=== PATIENT | female | born 1945 | race Caucasian/White ===

== ENCOUNTER 2023-05-29 22:16 | Inpatient (IN) | payer OTHER, SELFPAY ==
[2023-05-29] VITALS (10 sets, daily range): BP systolic 143–166; BP diastolic 76–97; BMI 21.5
[2023-05-29 17:30] LABS: % Basophils 0.2 % (0-2); % Eosinophils 0.1 % (0-6); % Immature Granulocytes 0.7 % (0-0.5); % Lymphocytes 5.5 % (20.5-51.1); % Monocytes 8.3 % (1.7-9.3); % Neutrophils 85.2 % (42.2-75.2); Absolute Immature Granulocytes 0.1 10^3/uL (0-0.05); Absolute Lymphocytes 0.9 10^3/uL (1.2-3.4); Absolute Monocytes 1.4 10^3/uL (0.1-0.6); Absolute Neutrophils 14.2 10^3/uL (1.4-6.5); Mean Corp Hgb Conc. 34.8 g/dL (33.0-37.0); Mean Corpuscular Hgb 30.1 pg (27.0-31.0); Mean Corpuscular Volume 86.6 fL (81.0-99.0); Mean Platelet Volume 9.5 fL (7.4-10.4); Nucleated Red Blood Cells % 0 %; Platelet Count 234 10^3/uL (130-400); Red Blood Cell Count 5.31 10^6/uL (4.20-5.40); Red Cell Dist. Width 13.5 % (11.5-14.5); White Blood Cell Count 16.7 10^3/uL (4.8-10.8)
[2023-05-29 17:42] LABS: Lactic Acid 1.6 mmol/L (0.7-2.0)
--- NOTE | 2023-05-29 18:03 | ED.GENMED ---
History of Present Illness
General
Chief Complaint: Fall
Source: patient
Exam Limitations: none
Time Seen by Provider: 05/29/23 17:57
Travel History
Have you had any contact with someone who has COVID-19?: No
Do you have any symptoms of coronavirus? Fever > 100 degrees, chills, cough, shortness of breath, sore throat, loss of taste or smell, muscle aches, or headache?: No
History of Present Illness
History of Present Illness:
See MDM
Past History
Past History
ED Past Medical History: None
ED Past Surgical History: None
Social History
Tobacco: Non-smoker
Alcohol: None
Phy Exam
Physical Exam
Physical Exam:
See MDM
Course
Orders/Labs/Results
Orders:
Orders
05/29/23 17:19
EKG [Electrocardiogram (*1)] Urgent
Reason for Study: Tachycardia
05/29/23 17:20
EKG- Treatment ONCE
Straight cath- Treatment ONCE
05/29/23 17:24
Complete Blood Count/With Diff Urgent
Lactic Acid Q4H
Comment: ON ICE, CANCEL 2ND ORDER IF FIRST LACTIC ACID LEVEL <2
Urinalysis Reflex To Culture Urgent
Date Specimen was Collected: 05/29/23
Time Specimen was Collected: 17:21
Urine Microscopic Reflex Cult Urgent
Urine Culture Urgent
HERNAN Source: U
Specimen Description:
Date Specimen was Collected: 05/29/23
Time Specimen was Collected: 17:21
05/29/23 18:00
0.9% Sodium Chloride 1000 ml [Nss] 1,000 ml IV BOLUS
05/29/23 18:01
CT Head W/o Iv Contrast Urgent
Comment:
Reason For Exam: fall, posterior head injury
04/13/24 18:02
Bilat Hips, 2 View W/AP Pelvis [CR Hips REESE w/wo Pel 2 Vw] Urgent
Comment:
Reason For Exam: bilateral hip pain
Include a pelvis x-ray?: Yes
05/29/23 18:04
Add On- LAB Urgent
Tests Added?: CRP
05/29/23 18:44
C-Reactive Protein Urgent
Comment: ADDON
05/29/23 20:11
Comprehensive Metabolic Panel Urgent
Creatine Phosphokinase Urgent
Comment: ADD ON
05/29/23 20:53
Add On- LAB Urgent
Tests Added?: CPK
05/29/23 20:54
CefTRIAXone [Rocephin] 1,000 mg IV NOW STA
05/29/23 21:30
Lactic Acid Q4H
Comment: ON ICE, CANCEL 2ND ORDER IF FIRST LACTIC ACID LEVEL <2
Abnormal Lab Results
05/29/23 05/29/23 05/29/23
17:24 18:44 20:11
WBC 16.7 H 10^3/uL
(4.8-10.8)
Abs Immat Gran (auto) 0.1 H 10^3/uL
(0-0.05)
Absolute Neuts (auto) 14.2 H 10^3/uL
(1.4-6.5)
Absolute Lymphs (auto) 0.9 L 10^3/uL
(1.2-3.4)
Absolute Monos (auto) 1.4 H 10^3/uL
(0.1-0.6)
Immature Gran % 0.7 H %
(0-0.5)
Neutrophils % 85.2 H %
(42.2-75.2)
Lymphocytes % 5.5 L %
(20.5-51.1)
Sodium 146 H mmol/L
(135-145)
Chloride 116 H mmol/L
(98-107)
BUN 43 H mg/dl
(7-17)
Creatinine 0.5 L mg/dL
(0.6-1.0)
Glucose 122 H mg/dl
(70-99)
AST 156 H U/L
(14-36)
ALT 126 H U/L
(0-35)
C-Reactive Protein 79.20 H mg/L
(0.0-10.00)
Albumin 3.4 L g/dl
(3.5-5.0)
Urine Ketones 3+ A
(Negative)
Ur Occult Blood Reflex 4+ A
(Negative)
Urine Nitrite (Reflex) Positive A
(Negative)
Leukocyte Esterase Rfl 2+ A
(Negative)
Urine WBC (Reflex) >100 A /HPF
(0-5)
Urine Bacteria (Reflex) Many A
(Negative)
Urine Albumin (Reflex) 2+ A
(Neg - Trace)
05/29/23 17:24
05/29/23 20:11
Vital Signs
Initial and Last Documented VS:
Initial Vital Signs
Temp Pulse Resp BP Pulse Ox
98.0 F 113 20 149/97 96
05/29/23 16:54 05/29/23 16:54 05/29/23 16:54 05/29/23 16:54 05/29/23 16:54
Last Documented Vital Signs
Temp Pulse Resp BP Pulse Ox
98.0 F 113 20 149/97 96
05/29/23 16:54 05/29/23 16:54 05/29/23 16:54 05/29/23 16:54 05/29/23 16:54
MDM/Problems Addressed
Differential Diagnosis Includes:
HPI and MDM Narrative:
78-year-old female presenting for evaluation of weakness. Patient states she had a fall and then she sat in a chair. Patient was unable to get out of the chair for 4 days. Friend called for a well visit and she was found covered in urine. On
arrival, patient is extremely dehydrated. She has bruising to her left hip and states she hit the back of her head. Patient has skin breakdown in her buttock, like from sitting in urine
Patient started IV fluids. Given the fall and head injury, will obtain CT head. Given the left hip bruising, will obtain hip x-ray. Will ultimately admit
Physical exam
General: Weak and frail
HEENT: protecting airway. Extremely dry mucous membranes
Neck: Nontender, supple
CV: No evidence of cyanosis. Tachycardic
Resp: No accessory muscle use
Abd: Non-distended
Extremities: Bruising to left hip
Neuro: alert
Psych: Normal affect
Skin: Skin breakdown to buttocks
Problems Addressed including Acute and Chronic Conditions affecting care:
1. Dehydration
Acuity: acute
Prognosis: unstable
Details: Patient requiring IV fluid
2. Hip pain
Acuity: acute
Prognosis: stable
Details: Will obtain x-ray to rule out fracture
Updates
CT head and hip x-rays negative. Blood work consistent with dehydration. Urine consistent with UTI. Will start Rocephin and continue IV fluids and admit
Differential Diagnosis (but not limited to): Dehydration, hip fracture, UTI
Testing considered: Chest x-ray but lungs
Drug therapy (if applicable): OTC meds, please see d/c instruction regarding Rx drugs
Amount and/or Complexity of Data Reviewed
Clinical info obtained from: Patient
External data reviewed: N/A
Labs I independently reviewed (but not limited to): Sodium 146
Radiology: The CT scan was personally and independently reviewed. In addition, official CT report reviewed.
X-ray independently reviewed: No hip fracture
Pulse Ox: not hypoxic
EKG independently reviewed: N/A
Alarm Signal Operator: N/A
Critical Care: N/A
Risk of Complication:
Social Determinants of health: Good social support
Discussed with other providers: Hospitalist
Escalation of Care includes Admit/Obs: Given her dehydration and generalized weakness in addition to UTI, will admit.
Occasional wrong word or 'sound a like' substitutions may have occurred due to the inherent limitations of voice recognition software. Read the chart carefully and recognize, using context, where substitutions have occurred.
*Critical Care Note
Total Time (30-74mins, 75-104mins- exclusive of procedures): Not Applicable
ED Attending Note
-
Portions of this chart may have been created with voice recognition software.� Occasional wrong word or��sound alike� substitutions may have occurred due to the inherent limitations of voice recognition software.
Discharge Plan
Departure
Patient Disposition: Admit
Date of Disposition: 05/29/23
Time of Disposition: 20:57
Admit to: Med/Surg
Presentation/result/management discussed w/ accepting MD/DO: Hospitalist
Discharge Problem:
Acute dehydration, Acute UTI, Contusion of hip
Referrals:
Sudha Huddleston MD [Family Provider] -
Interventions
Interventions:
*Risk Screen - Suicide Last Done: 05/29/23 16:54
*General Assessment Last Done: 05/29/23 16:54
*Neglect/Abuse Screening Last Done: 05/29/23 16:54
Discharge Date and Time
Print Language: MARTINIQUAIS
[2023-05-29] MEDS: NSS 1000 IV ×2 (18:45→23:54)
[2023-05-29 20:34] LABS: ALT (SGPT) 126 U/L (0-35); AST (SGOT) 156 U/L (14-36); Albumin 3.4 g/dl (3.5-5.0); Alkaline Phosphatase 116 U/L (38-126); Blood Urea Nitrogen 43 mg/dl (7-17); Calcium 9.3 mg/dl (8.4-10.2); Carbon Dioxide 25 mmol/L (22-30); Chloride 116 mmol/L (98-107); Estimated Creatinine Clearance 68 ml/min; Glucose 122 mg/dl (70-99); Potassium 3.5 mmol/L (3.5-5.1); Sodium 146 mmol/L (135-145); Total Bilirubin 0.7 mg/dl (0.2-1.3); Total Protein 6.3 g/dl (6.3-8.2); eGFR > 60.00
[2023-05-29 20:42] LABS: Urine Albumin 2+ (Neg - Trace); Urine Bilirubin Negative (Negative); Urine Character Very Cloudy (Clear); Urine Color Yellow; Urine Glucose Negative (Negative); Urine Ketone 3+ (Negative); Urine Leukocyte 2+ (Negative); Urine Nitrite Positive (Negative); Urine Occult Blood 4+ (Negative); Urine Specific Gravity 1.015 (<1.030); Urine Urobilinogen Negative (Neg - 1+)
[2023-05-29 20:48] LABS: Urine Squamous Cell 0-2 /LPF (Few)
[2023-05-29 20:49] LABS: Urine Bacteria Many (Negative); Urine White Cell >100 /HPF (0-5)
[2023-05-29] MEDS: ROCEPHIN 1000 MG IV (21:03)
[2023-05-29 21:38] LABS: Creatine Phosphokinase 2589 U/L (30-135)
--- NOTE | 2023-05-29 21:49 | HPS.HSE ---
Family Physician
-
Family Physician: Sudha Huddleston
Chief Complaint
-
Fall, weakness sitting in chair x 4 days
History of Present Illness
78-year-old female who reports she fell then sat in a chair for the last 4 days. She was found during a well visit covered in urine with bruising to the left hip. She reports when she fell she hit the back of her head. She has current skin
breakdown on her buttocks. Labs in ER show dehydration with rhabdomyolysis. Patient denies current headache, dizziness, blurred vision, sore throat, fever, chills, chest pain, palpitations, abdominal pain, nausea, vomiting, diarrhea. Patient
denies any past medical history past surgical history cataract extraction only
Medical History
Past Medical History
Past Medical History: Reports None
Past Surgical History: Reports Other (Cataract extraction bilaterally)
Social History
Tobacco: Non-smoker
Alcohol: None
Drug: None
Personal: Single
Living: Alone (Condo)
Employment: Retired
Family History
Family History: Other (Mother head and neck cancer, father alcohol abuse, brother of lung cancer)
Allergies / Home Medications
Allergies reflects when Allergies were last updated in [employer].
Home Medications with original date entered in [employer]
Allergy/Medication List:
Allergies
Allergy/AdvReac Type Severity Reaction Status Date / Time
No Known Allergies Allergy Verified 05/29/23 16:54
Home Medications
Calcium with Vitamin D 1 tab PO DAILY 05/29/23
M.V.I. Adult 1 tab PO DAILY 05/29/23
Review of Systems
-
History Source: Patient
A 12 point ROS was completed and negative except as noted: Yes
Constitutional: Reports Fatigue; Denies Fever
EENT: Reports Other (Dry oral mucosa); Denies Sore Throat
Respiratory: Denies Cough or Trouble Breathing
Cardiac: Denies Chest Pain, Diaphoresis, Palpitations or Syncope
Abdomen/GI: Denies Abdominal Pain, Nausea, Vomiting, Diarrhea, Constipated or Bloody Stools
: Reports Dysuria (With excoriation to groin) and Incontinence (Found sitting in urine x 4 days); Denies Flank Pain
Musculoskeletal: Reports Joint Pain (Left hip); Denies Joint Swelling or Edema
Skin: Reports Other (Excoriation to buttocks and vaginal area secondary to soaked urine); Denies Itching or Rash
Neurological: Denies Dizzy or Headache
Endocrine: Reports No Symptoms
Hematologic/Lymphatic: Reports No Symptoms
Psych: Reports Calm
Physical Exam
Vital Signs
Vital Signs
Temp Pulse Resp BP Pulse Ox
98.0 F 113 20 149/97 96
05/29/23 16:54 05/29/23 16:54 05/29/23 16:54 05/29/23 16:54 05/29/23 16:54
Physical Exam
General: Comfortable and Conversant; No Fever or Chills
HEENT: NormoCephalic, Anicteric, Atraumatic, PERRLA and Neck Nontender
Respiratory: Clear; No Wheezes, Rales or Rhonchi
Cardiac: S1/S2 and Regular Rhythm; No Murmur, Rub or Gallop
Breast: Deferred by me
GI: Soft, Non Tender, Non Distended and Normal Bowel Sounds
Rectal: Deferred by Provider
Genito-urinary: Deferred by me
Musculoskeletal: No Clubbing, No Cyanosis and No Edema
Skin: Warm, Dry and Rash (Excoriation to buttocks and vaginal area from lying in soaked urine x 4 days)
Neuro: AO x 3, No Motor Deficits, Nonfocal/grossly intact, Cranial Nerves Intact and No Sensory Deficits; No Slurred Speech, Facial Droop or Tremors
Psych: Calm
Laboratory Results
-
05/29/23 17:24
05/29/23 20:11
Laboratory Results
Lactic Acid Cancelled 05/29/23 21:30
Total Bilirubin 0.7 mg/dl (0.2-1.3) 05/29/23 20:11
AST 156 U/L (14-36) H 05/29/23 20:11
ALT 126 U/L (0-35) H 05/29/23 20:11
Alkaline Phosphatase 116 U/L (38-126) 05/29/23 20:11
Impression/Plan
-
Impression/plan
Admit to [facility]
#Acute UTI
WBC 16.7, pyuria
-Follow urine culture, blood cultures x 2
-IV Rocephin
#Acute rhabdomyolysis
Creatinine kinase 2589
NSS 1 L given in ER continue IV NSS, 100 cc/h
-Follow CPK
-PT/OT/case management eval patient lives alone in condo
#Acute transaminitis in setting of acute rhabdo
AST 156, ALT 126
- will follow CMP
#Acute hyponatremia�hypovolemic
NA 146, bun 43
IV NSS 100 cc an hour
#Excoriation buttocks 2/2 prolonged sitting with urine saturation
-Consult wound care
DVT prophylaxis
-subcu Lovenox
DNR per patient states her nephew Jason is her POA
--- NOTE | 2023-05-29 21:58 | W.PN.UPDATE ---
Addendum entered and electronically signed by Slikc Mcghee MD 05/29/23 22:06:
CORRECTION: DNR per advanced directives confirmed by patient
Original Note:
Update Note
Progress Note Update
This note serves as an addendum to the H&P by crucible furnace tender EUNICE Allyn VYAS on 05/29/23
HPI
78F Lives alone , no significant prior PMHX , not on any schedule Rx except vitamins seen at ER for evaluation of weakness and Fall 4 days ago
Fall & weakness:
Reports fall 4 day ago , denied prodromal symptoms before fall
Denied acute illness prior to above fall
Reports hi the back of the head : No LOC, denied N/V and THOMAS
Immediately able to get back on chair
Since than reports she is unable to gt out of chair and sit ther for last 4 days due to severe generalized weakness
Friend called for a well visit and she was found covered in urine s/s urinary incontinece and unable to go to [facility]
At ER:
Noted skin brake down in buttocks due to siting in pool of urine
Noted Lt hip bruising - NEG XR both hips and pelvis
FROM of bot hips - Non tender ROM
Reports hit head when fallbut NEG HCT
Abn UA suggestive of UTI
Clinically very dry
Tachycardic
Mildly hypertensive
PMHX : None
PSHX : None
SHx
Tobacco: Non-smoker
Alcohol: None
Reviewed VS: Afebrile tachycardic HR 113 BP 150/97 RR20 POx 96
PE
Gen: NAD, not toxic looking, calm
HEENT: very dry lips, OM
Neck: supple, no JVD
Lungs: symmetric AE
Cor: RRR S1 S2 no mumur
Abdomen: soft NT NG NRT
COLLAR TURNER: AAO3, NFND, KOSTAS
MS: no edema, Both hips - full ROM without tenderness , no gross defomitiy
Psych:
Data
WCC 16.7
Na 146
K 3.5
Cl 116
CO2 25
BUN 43
AST 156
ALT 126
CPKS 2589
Pending Covid
Abn UA: 2+ LE, WCC > 100 , many bacteria, POS Nitrites
B/L Hip with AP pelvis XR:
Mild degenerative changes of both hips without evidence for acute fracture or dislocation.
Mild degenerative changes of the pubis symphysis, bilateral sacroiliac joints and partially visualized lower lumbar spine.
Soft tissues are grossly unremarkable.
HCT: No acute intracranial abnormality noted
EKG:
SINUS TACHYCARDIA
OTHERWISE NORMAL ECG
NO PREVIOUS ECGS AVAILABLE
No prior hospitalist admission:
ASSESSMENT & PLAN
UTI
Significant pyuria and urine incontinence
Burning sensation around perivaginal are due to excoriation
Afebrile
- UCx reflex for UA
- agree with IV CFTX
- IVF NS
Mild Rhabdomyolysis due to prolonged sitting pressure on buttocks and dehydration
- IV NS 100/H
- Trend CPKs and ASTs
Acute transaminitis
Suspect AILI due to hypoperfused liver due to severe dehydration
- IVF and trend LFTs
Severe dehydration s/p IV NS 1 L at ER
Hypernatremic Na 146
calculated FWD 1.1 L
Azotemia
- cont. IV NS @100 /H
- Trend BMP
Weakness and fall due to UTI and dehydration
Reports hit head but NEG HCT
NEG for acute Fx of both hips
- PT/OT
- Tylenol PRN for pain
DVT Px: LMWH
Code: Full
IP MS
[2023-05-29 22:39] LABS: COVID-19 Antigen Negative (Negative)
[2023-05-30] VITALS (8 sets, daily range): BP systolic 123–163; BP diastolic 55–84; PULSE 84–89; BMI 21.5
--- NOTE | 2023-05-30 09:10 | PTCARENOTE ---
attending notified of bounding heart sounds and JVD. D/C IVF and EKG and tele
[2023-05-30 09:57] LABS: % Basophils 0.2 % (0-2); % Eosinophils 0.6 % (0-6); % Immature Granulocytes 0.6 % (0-0.5); % Lymphocytes 8.9 % (20.5-51.1); % Monocytes 9.2 % (1.7-9.3); % Neutrophils 80.5 % (42.2-75.2); Absolute Eosinophils 0.1 10^3/uL (0-0.7); Absolute Immature Granulocytes 0.1 10^3/uL (0-0.05); Absolute Lymphocytes 1.1 10^3/uL (1.2-3.4); Absolute Monocytes 1.2 10^3/uL (0.1-0.6); Absolute Neutrophils 10.2 10^3/uL (1.4-6.5); Hematocrit 39.3 % (37.0-47.0); Mean Corp Hgb Conc. 33.1 g/dL (33.0-37.0); Mean Corpuscular Hgb 29.7 pg (27.0-31.0); Mean Corpuscular Volume 89.9 fL (81.0-99.0); Nucleated Red Blood Cells % 0 %; Red Blood Cell Count 4.37 10^6/uL (4.20-5.40); Red Cell Dist. Width 13.4 % (11.5-14.5); White Blood Cell Count 12.7 10^3/uL (4.8-10.8)
[2023-05-30 10:41] LABS: Mean Platelet Volume 10.2 fL (7.4-10.4); Platelet Count 154 10^3/uL (130-400)
[2023-05-30 11:17] LABS: ALT (SGPT) 118 U/L (0-35); AST (SGOT) 137 U/L (14-36); Albumin 2.8 g/dl (3.5-5.0); Alkaline Phosphatase 103 U/L (38-126); Blood Urea Nitrogen 27 mg/dl (7-17); Carbon Dioxide 25 mmol/L (22-30); Chloride 110 mmol/L (98-107); Creatine Phosphokinase 942 U/L (30-135); Estimated Creatinine Clearance 68 ml/min; Glucose 92 mg/dl (70-99); Potassium 3.4 mmol/L (3.5-5.1); Sodium 140 mmol/L (135-145); Total Bilirubin 0.6 mg/dl (0.2-1.3); Total Protein 5.6 g/dl (6.3-8.2); eGFR > 60.00
[2023-05-30 11:36] LABS: Blood Urea Nitrogen 28 mg/dl (7-17); Calcium 9.5 mg/dl (8.4-10.2); Carbon Dioxide 27 mmol/L (22-30); Chloride 107 mmol/L (98-107); Estimated Creatinine Clearance 68 ml/min; Glucose 136 mg/dl (70-99); Potassium 3.4 mmol/L (3.5-5.1); Sodium 141 mmol/L (135-145); eGFR > 60.00
[2023-05-30] MEDS: NSS IV (11:43)
--- NOTE | 2023-05-30 16:32 | CM ---
Initial Assessment completed with pt at bedside.
Pt lives alone in a 1 level condo with 6 steps to enter, and is independent at baseline, driving
Pt has no DME/VN/SNF and says this was her first fall. 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
PCP; Sudha Huddleston
Pharm; [facility]
PLAN; TBD pending PT evals.
--- NOTE | 2023-05-30 17:26 | W.PN.HOSP.TC ---
Today's Communication/Plan
-
IV fluids
Recheck labs in AM
Echo
Assessment / Plan
Assessment / Plan
Physical Exam
General: Not in acute distress
HEENT: Normocephalic
Respiratory: Clear to Auscultation Bilaterally
Cardiac: S1/S2 and Regular Rhythm
GI: Soft, Non Tender, Non Distended and Normal Bowel Sounds
Musculoskeletal: No Cyanosis and No Edema
Skin: Warm, Dry and Rash (Excoriation to buttocks and vaginal area from lying in soaked urine x 4 days)
Neuro: AAO x 3, Nonfocal/Grossly Intact
Psych: Calm
Assessment/Plan
78-year-old female who reported she fell then sat in a chair for the 4 days prior to presentation. She was found during a well visit covered in urine with bruising to the left hip. She reported that when she fell she hit the back of her head. She
has skin breakdown on her buttocks. Labs in ER showed dehydration with rhabdomyolysis.
#Acute Urinary Tract Infection
#Leukocytosis
-Follow urine culture, blood cultures x 2
-Continue intravenous Rocephin
#Acute rhabdomyolysis
-Follow CPK
-PT/OT/case management eval patient lives alone in condo
-Continue IV fluids
#Bounding S1 and S2 on exam, concern for JVD
-Nurse called about this issues on 05/30/23 AM
-Patient not hypoxic or short of breath
-Check echocardiogram
#Acute transaminitis in setting of acute rhabdo
-RUQ ultrasound
-Trending down
-Trend CMP
-If does not improve, then consider GI consult
#Hypernatremia
-Resolved with IV fluids
#Excoriation buttocks 2/2 prolonged sitting with urine saturation
-Consult wound care
DVT prophylaxis
-subcu Lovenox
DNR
Anticipated Discharge: 24 - 48 hours
Subjective/Interval History
-
Date of Service: May 30, 2023
Patient was seen and examined. She reported no new symptoms or complaints, and she reported no chest pain or shortness of breath.
Objective Data
-
Labs:
Laboratory Results
05/30/23 05/30/23 05/30/23
09:02 10:41 18:00
WBC 12.7 H
Hgb 13.0
Hct 39.3
Plt Count 154 D
Sodium 140 141 Pending
Potassium 3.4 L 3.4 L Pending
Chloride 110 H 107 Pending
Carbon Dioxide 25 27 Pending
BUN 27 H 28 H Pending
Creatinine 0.5 L 0.5 L Pending
Glucose 92 136 H Pending
Calcium 9.0 9.5 Pending
Total Bilirubin 0.6
AST 137 H
ALT 118 H
Alkaline Phosphatase 103
Vital Signs:
Vital Signs
Temp Pulse Resp BP Pulse Ox
98.5 F 101 16 123/55 97
05/30/23 16:05 05/30/23 16:05 05/30/23 16:05 05/30/23 16:05 05/30/23 16:05
I&O
05/29/23 05/30/23 05/31/23
06:59 06:59 06:59
Intake Total 240 / 240
Balance 240 / 240
[2023-05-30] MEDS: LOVENOX 30 MG SC (17:39)
[2023-05-30] MEDS: NSS 1000 IV (18:26)
[2023-05-30 18:37] LABS: Blood Urea Nitrogen 25 mg/dl (7-17); Calcium 9.4 mg/dl (8.4-10.2); Carbon Dioxide 28 mmol/L (22-30); Chloride 105 mmol/L (98-107); Estimated Creatinine Clearance 68 ml/min; Glucose 129 mg/dl (70-99); Potassium 3.3 mmol/L (3.5-5.1); Sodium 139 mmol/L (135-145); eGFR > 60.00
[2023-05-30 18:47] LABS: NT-proBNP 507 pg/ml
[2023-05-30] MEDS: STERILE WATER FOR INJECTION 10 ML IV (21:03)
[2023-05-30] MEDS: ROCEPHIN 1000 MG IV (21:03)
[2023-05-30 21:39] LABS: Troponin I 0.025 ng/ml
[2023-05-30] MEDS: KCL 40 MEQ PO (22:36)
[2023-05-31] VITALS (8 sets, daily range): BP systolic 123–159; BP diastolic 62–82; PULSE 95–105
[2023-05-31 01:16] LABS: Blood Urea Nitrogen 20 mg/dl (7-17); Calcium 8.9 mg/dl (8.4-10.2); Carbon Dioxide 25 mmol/L (22-30); Chloride 105 mmol/L (98-107); Estimated Creatinine Clearance 68 ml/min; Glucose 133 mg/dl (70-99); Potassium 3.3 mmol/L (3.5-5.1); Sodium 133 mmol/L (135-145); eGFR > 60.00
[2023-05-31 07:12] LABS: % Basophils 0.3 % (0-2); % Eosinophils 1.6 % (0-6); % Immature Granulocytes 2.6 % (0-0.5); % Lymphocytes 12.2 % (20.5-51.1); % Monocytes 8.7 % (1.7-9.3); % Neutrophils 74.6 % (42.2-75.2); Absolute Eosinophils 0.2 10^3/uL (0-0.7); Absolute Immature Granulocytes 0.3 10^3/uL (0-0.05); Absolute Lymphocytes 1.4 10^3/uL (1.2-3.4); Absolute Neutrophils 8.8 10^3/uL (1.4-6.5); Hematocrit 34.5 % (37.0-47.0); Hemoglobin 11.7 g/dL (12.0-16.0); Mean Corp Hgb Conc. 33.9 g/dL (33.0-37.0); Mean Corpuscular Hgb 30.1 pg (27.0-31.0); Mean Corpuscular Volume 88.7 fL (81.0-99.0); Mean Platelet Volume 9.7 fL (7.4-10.4); Nucleated Red Blood Cells % 0 %; Platelet Count 143 10^3/uL (130-400); Red Blood Cell Count 3.89 10^6/uL (4.20-5.40); Red Cell Dist. Width 13.4 % (11.5-14.5); White Blood Cell Count 11.8 10^3/uL (4.8-10.8)
[2023-05-31 07:48] LABS: ALT (SGPT) 107 U/L (0-35); AST (SGOT) 106 U/L (14-36); Albumin 2.5 g/dl (3.5-5.0); Alkaline Phosphatase 90 U/L (38-126); Blood Urea Nitrogen 15 mg/dl (7-17); Calcium 8.6 mg/dl (8.4-10.2); Carbon Dioxide 26 mmol/L (22-30); Chloride 109 mmol/L (98-107); Creatine Phosphokinase 222 U/L (30-135); Estimated Creatinine Clearance 68 ml/min; Glucose 109 mg/dl (70-99); Potassium 3.7 mmol/L (3.5-5.1); Sodium 136 mmol/L (135-145); Total Bilirubin 0.5 mg/dl (0.2-1.3); eGFR > 60.00
--- NOTE | 2023-05-31 11:10 | W.PN.HOSP.TC ---
Today's Communication/Plan
-
Liver ultrasound
Orthostatic vitals
Await echocardiogram
Discharge planning
Assessment / Plan
Assessment / Plan
Gen-AAOx3, NAD
HEENT-NC, AT, anicteric, clear oral mm
Neck-supple
CV-reg, no M, +S1/S2
Lungs-clear B/L
Abd-soft, NT, ND
Ext-no edema
Musculoskeletal-no cyanosis, clubbing
Skin-warm and dry
Neuro-grossly non-focal
Psych-calm, cooperative
Acute Urinary Tract Infection -currently on IV Rocephin. Cultures pending.
Acute traumatic rhabdomyolysis -due to fall at home, limited mobility. CPK trended down. Check orthostatics.
Acute transaminitis in setting of acute rhabdo -check liver ultrasound.
Hypernatremia -due to dehydration. Improved.
Troponin elevation -resolved. Likely acute nonischemic troponin elevation due to acute illness.
Excoriation buttocks 2/2 prolonged sitting with urine saturation
-Consult wound care
DVT prophylaxis
-subcu Lovenox
DNR
Dispo -stable for discharge to SNF.
Anticipated Discharge: Within 24 hours
Subjective/Interval History
-
Date of Service: May 31, 2023
Patient seen and examined. No complaints.
Objective Data
-
Labs:
Laboratory Results
05/31/23 05/31/23 05/31/23
00:25 06:47 12:00
WBC 11.8 H
Hgb 11.7 L
Hct 34.5 L
Plt Count 143
Sodium 133 L 136 Pending
Potassium 3.3 L 3.7 Pending
Chloride 105 109 H Pending
Carbon Dioxide 25 26 Pending
BUN 20 H 15 Pending
Creatinine 0.4 L 0.4 L Pending
Glucose 133 H 109 H Pending
Calcium 8.9 8.6 Pending
Total Bilirubin 0.5
AST 106 H
ALT 107 H
Alkaline Phosphatase 90
Vital Signs:
Vital Signs
Temp Pulse Resp BP Pulse Ox
98.9 F 91 16 123/62 98
05/31/23 07:00 05/31/23 07:00 05/31/23 07:00 05/31/23 07:00 05/31/23 08:40
I&O
05/30/23 05/31/23 06/01/23
06:59 06:59 06:59
Intake Total 240 / 240 1020 / 1020
Balance 240 / 240 1020 / 1020
Review of Systems
-
History Source: Patient
All other systems: Reviewed and negative
[2023-05-31] MEDS: NSS IV (11:16)
[2023-05-31 12:34] LABS: Blood Urea Nitrogen 14 mg/dl (7-17); Calcium 9.2 mg/dl (8.4-10.2); Carbon Dioxide 26 mmol/L (22-30); Chloride 104 mmol/L (98-107); Estimated Creatinine Clearance 68 ml/min; Glucose 161 mg/dl (70-99); Potassium 3.6 mmol/L (3.5-5.1); Sodium 137 mmol/L (135-145); eGFR > 60.00
--- NOTE | 2023-05-31 14:05 | WOUNDNOTE ---
L HEEL (PLANTER LATERAL)(with photo flash)
--- NOTE | 2023-05-31 14:05 | WOUNDNOTE ---
R HEEL (LATERAL PLANTAR)
--- NOTE | 2023-05-31 14:08 | WOUNDNOTE ---
[facility] RN note: Patient admitted with Rhabdomyolysis, fall then sat in chair for 4 days. Nephew RADHA.
See H&P for complete history.
PMH: Asperger's, shoulder fracture.
Wound Location and type/assessment: Patient admitted with: Bilateral sacral/buttocks stage 2 pressure injuries (R side deep dermal) and large area of red skin sacral/buttocks, mostly blanchable red. R lateral plantar blood blister suspect DTI and L
heel serous blister with redness, stage 2 vs evolving DTI. +Palpable pedal pulses. Mild perineal MASD.
Appetite: on regular diet.
Pressure redistribution devices in place: Waffle air overlay. Air chair cushion.
Plan: Patient incontinent of medium soft stool along with liquid brown stool. Joyce care given and patient turned with help from SAVAGE Moraes. SAVAGE Moraes applied dressing to heels. Heels off bed with air chair cushion.
Will confirm orders with hospitalist and will update SAVAGE Munoz.
Care plan to be updated and will follow as needed.
Note to case management of equipment requested for discharge: Air mattress.
Recommend follow up at wound care center upon discharge.
[2023-05-31] MEDS: LOVENOX 40 MG SC (17:00)
[2023-05-31] MEDS: STERILE WATER FOR INJECTION 10 ML IV (21:56)
[2023-05-31] MEDS: ROCEPHIN 1000 MG IV (21:56)
[2023-06-01] VITALS (7 sets, daily range): BP systolic 113–136; BP diastolic 57–73; PULSE 91; O2SAT 97
[2023-06-01] MEDS: NSS IV (01:55)
[2023-06-01 05:43] LABS: % Basophils 0.2 % (0-2); % Eosinophils 2.5 % (0-6); % Monocytes 7.5 % (1.7-9.3); % Neutrophils 75.8 % (42.2-75.2); Absolute Eosinophils 0.3 10^3/uL (0-0.7); Absolute Immature Granulocytes 0.3 10^3/uL (0-0.05); Absolute Lymphocytes 1.7 10^3/uL (1.2-3.4); Absolute Neutrophils 10.4 10^3/uL (1.4-6.5); Hematocrit 35.3 % (37.0-47.0); Hemoglobin 11.8 g/dL (12.0-16.0); Mean Corp Hgb Conc. 33.4 g/dL (33.0-37.0); Mean Corpuscular Hgb 29.8 pg (27.0-31.0); Mean Corpuscular Volume 89.1 fL (81.0-99.0); Mean Platelet Volume 9.6 fL (7.4-10.4); Nucleated Red Blood Cells % 0 %; Platelet Count 158 10^3/uL (130-400); Red Blood Cell Count 3.96 10^6/uL (4.20-5.40); Red Cell Dist. Width 13.2 % (11.5-14.5); White Blood Cell Count 13.7 10^3/uL (4.8-10.8)
[2023-06-01 06:13] LABS: ALT (SGPT) 116 U/L (0-35); AST (SGOT) 97 U/L (14-36); Albumin 2.5 g/dl (3.5-5.0); Alkaline Phosphatase 100 U/L (38-126); Blood Urea Nitrogen 13 mg/dl (7-17); Carbon Dioxide 29 mmol/L (22-30); Chloride 101 mmol/L (98-107); Estimated Creatinine Clearance 68 ml/min; Glucose 116 mg/dl (70-99); Potassium 3.8 mmol/L (3.5-5.1); Sodium 135 mmol/L (135-145); Total Bilirubin 0.3 mg/dl (0.2-1.3); Total Protein 5.2 g/dl (6.3-8.2); eGFR > 60.00
--- NOTE | 2023-06-01 08:05 | PN.CDI ---
CDI
- -
CDI:
Physician Documentation Request
Admit Date: 05/29/23 22:16
Dear Doctor Kristal,
Patient admitted with UTI.
05/30 Hospitalist PN: 'Troponin elevation -resolved. Likely acute nonischemic troponin elevation due to acute illness.'
Please clarify the following regarding the documented troponin elevation:
Non-ischemic myocardial injury
Lab abnormality
Other
Use of terms such as suspected, likely, concern for, or probable (associated with a specific diagnosis that is being evaluated, monitored, or treated as if it exists) are acceptable and can be coded in the inpatient setting, when documented at the
time of discharge.
Thank you,
Margaret Bang RN, BSN
CDI Specialist
Available via [place] text
Please use your independent medical judgment in providing your response.
--- NOTE | 2023-06-01 08:08 | PN.CDI ---
CDI
- -
CDI:
Physician Documentation Request
Admit Date: 05/29/23 22:16
Dear Doctor Kristal,
Patient admitted with UTI.
Laboratory Tests
05/29/23
17:24
WBC 16.7 H
05/29/23
16:54 05/29/23
17:16 05/29/23
17:47
Pulse 113 118 111
05/29/23
17:16 05/29/23
20:03 05/29/23
20:30
Resp Rate 22 21 21
Please clarify which of the following most accurately describes the status of the patient's infection:
Sepsis, POA
- Systemic manifestations of infection, with 2 or more SIRS criteria which include:
- Fever >100.4 degrees F or hypothermia < 96.8 degrees F
- Leukocytosis - WBC > 12,000 or leukopenia - WBC < 4,000 or > 10% bands
- Tachycardia > 90 beats per minute
- Tachypnea - RR > 20 breaths per minute or PaCO2 , 32mmHg
Source: Merck Manual 2012
Localized Infection Only, Without Systemic Illness
- indicate the site/source, such as UTI, etc.
Other
Use of terms such as suspected, likely, concern for, or probable (associated with a specific diagnosis that is being evaluated, monitored, or treated as if it exists) are acceptable and can be coded in the inpatient setting, when documented at the
time of discharge.
Thank you,
Margaret Bang
CDI Specialist
Please use your independent medical judgment in providing your response.
--- NOTE | 2023-06-01 08:12 | PN.CDI ---
CDI
- -
CDI:
Physician Documentation Request
Admit Date: 05/29/23 22:16
Dear Doctor Kristal,
Patient admitted with UTI.
05/30 Hospitalist PN: 'Excoriation buttocks 2/2 prolonged sitting with urine saturation'
05/30 Wound Care Note: 'Bilateral sacral/buttocks stage 2 pressure injuries (R side deep dermal) and large area of red skin sacral/buttocks, mostly blanchable red. R lateral plantar blood blister suspect DTI and L heel serous blister with redness,
stage 2 vs evolving DTI.'
Physician documentation of the type and location of wounds is required for compliant documentation. Based on the above clinical findings and your assessment, please provide the following in your progress note:
1. Location of the ulcer/wound, including laterality.
2. Type (etiology) of ulcer/wound:
- Diabetic ulcer
- Arterial (ischemic) ulcer
- Traumatic wound
- Venous stasis ulcer
- Pressure (decubitus) ulcer
- Non-healing surgical wound
- Other
- Unable to determine
3. For a non-pressure ulcer, please indicate the depth/severity:
- Limited to the breakdown of skin
- With fat layer exposed
- With necrosis of muscle
- With necrosis of bone
- Other
- Unable to determine
4. If a pressure ulcer, please also include the stage* of the ulcer:
- Stage 1 - Skin intact, non-blanchable redness
- Stage 2 - Partial thickness loss of dermis, includes intact or open blister
- Stage 3 - Full thickness tissue not including bone, tendon or muscle
- Stage 4 - Full thickness tissue loss, including exposed bone, tendon or muscle
- Unstageable - Full thickness loss in which the base of the ulcer is covered by slough (yellow, pool, romero, green or brown) and/or eschar (pool, brown or black) in the wound bed.
- Unable to determine
Use of terms such as suspected, likely, concern for, or probable (associated with a specific diagnosis that is being evaluated, monitored, or treated as if it exists) are acceptable and can be coded in the inpatient setting, when documented at the
time of discharge.
Thank you,
Margaret Bang RN, BSN
CDI Specialist
Available via [employer] text
Please use your independent medical judgment in providing your response.
*Source: National Pressure Ulcer Advisory Panel (NPUAP)
--- NOTE | 2023-06-01 08:23 | CM ---
Spoke with pt in room.
PT recommended SNF.
Choice given to pt . She requested [facility] . Entered in care port.
Will need auth.
PLAN Locate SNF get auth
--- NOTE | 2023-06-01 13:10 | W.PN.HOSP.TC ---
Addendum entered and electronically signed by Brendan Giraldo DO 06/01/23 16:00:
I updated patient's nephew on the phone, his name is Jason. [phone].
Addendum entered and electronically signed by Brendan Giraldo DO 06/01/23 13:33:
Acute nonischemic myocardial injury due to acute illness, resolved.
Transient SIRS with tachycardia. Resolved. Source of leukocytosis unclear. No clinical evidence of sepsis.
Bilateral sacral/buttocks stage 2 pressure injuries
Left heel serous blister with redness, stage 2 vs evolving DTI
Original Note:
Today's Communication/Plan
-
MRCP
Assessment / Plan
Assessment / Plan
Gen-AAOx3, NAD
HEENT-NC, AT, anicteric, clear oral mm
Neck-supple
CV-reg, no M, +S1/S2
Lungs-clear B/L
Abd-soft, NT, ND
Ext-no edema
Musculoskeletal-no cyanosis, clubbing
Skin-warm and dry
Neuro-grossly non-focal
Psych-calm, cooperative
Urinary Tract Infection -currently on IV Rocephin, day 4 of 5. Urine culture shows >100k gram neg bacilli. Blood cultures negative so far.
Acute traumatic rhabdomyolysis -due to fall at home, limited mobility. CPK trended down. She is not orthostatic based on vitals.
Elevated transaminases -normal alkaline phosphatase, bilirubin. Ultrasound shows moderate intra and extrahepatic biliary dilation. Contracted gallbladder without stones. Mild diffuse liver disease, probably diffuse hepatic steatosis. Pancreas
was incompletely visualized due to adjacent bowel gas. Will obtain MRCP. Rule out pancreatic mass, gallstone, etc.
Hypernatremia -due to dehydration. Improved.
Troponin elevation -resolved. Likely acute nonischemic troponin elevation due to acute illness.
Excoriation buttocks 2/2 prolonged sitting with urine saturation
-Consult wound care
DVT prophylaxis
-subcu Lovenox
DNR
Dispo -awaiting SNF placement.
Anticipated Discharge: Within 24 hours
Subjective/Interval History
-
Date of Service: June 01, 2023
Patient seen/examined. No complaints.
Objective Data
-
Labs:
Laboratory Results
06/01/23
05:13
WBC 13.7 H
Hgb 11.8 L
Hct 35.3 L
Plt Count 158
Sodium 135
Potassium 3.8
Chloride 101
Carbon Dioxide 29
BUN 13
Creatinine 0.4 L
Glucose 116 H
Calcium 9.0
Total Bilirubin 0.3
AST 97 H
ALT 116 H
Alkaline Phosphatase 100
Vital Signs:
Vital Signs
Temp Pulse Resp BP Pulse Ox
98.3 F 85 18 113/62 96
06/01/23 11:27 06/01/23 11:27 06/01/23 11:27 06/01/23 11:27 06/01/23 11:27
I&O
05/31/23 06/01/23 06/02/23
06:59 06:59 06:59
Intake Total 1020 / 1020 1260 / 1260
Balance 1020 / 1020 1260 / 1260
Review of Systems
-
History Source: Patient
All other systems: Reviewed and negative
--- NOTE | 2023-06-01 16:06 | CM ---
Spoke with Deacon at [facility] pt has a bed.
Pt need auth with Lisa. [facility] NPI [id number] and Dr Serrano [id number] .
Pt requested ambulance will need medical nec form
[facility]
report [phone]
fax [phone]
PLAN To [facility] after auth obtained
[2023-06-01] MEDS: LOVENOX 40 MG SC (17:26)
[2023-06-01] MEDS: ROCEPHIN 1000 MG IV (22:09)
[2023-06-01] MEDS: STERILE WATER FOR INJECTION 10 ML IV (22:09)
--- NOTE | 2023-06-02 04:47 | DOWNTIME ---
There was a [employer] Downtime on 06/02/2023 from 0100 to 06/02/2023 at 0439. Downtime documentation of patient's care, including medication administrations, has been reconciled in the electronic record per guidelines. Refer to the
patient's paper chart under the miscellaneous tab to see printed paper medication records and downtime forms.
[2023-06-02 06:02] LABS: % Basophils 0.4 % (0-2); % Eosinophils 4.3 % (0-6); % Immature Granulocytes 4.6 % (0-0.5); % Lymphocytes 15.1 % (20.5-51.1); % Monocytes 7.6 % (1.7-9.3); Absolute Basophils 0.1 10^3/uL (0-0.2); Absolute Eosinophils 0.5 10^3/uL (0-0.7); Absolute Immature Granulocytes 0.6 10^3/uL (0-0.05); Absolute Lymphocytes 1.9 10^3/uL (1.2-3.4); Absolute Neutrophils 8.6 10^3/uL (1.4-6.5); Hematocrit 33.3 % (37.0-47.0); Hemoglobin 11.4 g/dL (12.0-16.0); Mean Corp Hgb Conc. 34.2 g/dL (33.0-37.0); Mean Corpuscular Hgb 29.9 pg (27.0-31.0); Mean Corpuscular Volume 87.4 fL (81.0-99.0); Mean Platelet Volume 9.3 fL (7.4-10.4); Nucleated Red Blood Cells % 0 %; Platelet Count 215 10^3/uL (130-400); Red Blood Cell Count 3.81 10^6/uL (4.20-5.40); Red Cell Dist. Width 13.3 % (11.5-14.5); White Blood Cell Count 12.7 10^3/uL (4.8-10.8)
[2023-06-02 06:33] LABS: ALT (SGPT) 105 U/L (0-35); AST (SGOT) 91 U/L (14-36); Albumin 2.5 g/dl (3.5-5.0); Alkaline Phosphatase 109 U/L (38-126); Blood Urea Nitrogen 12 mg/dl (7-17); Calcium 8.8 mg/dl (8.4-10.2); Carbon Dioxide 28 mmol/L (22-30); Chloride 99 mmol/L (98-107); Estimated Creatinine Clearance 68 ml/min; Glucose 111 mg/dl (70-99); Sodium 133 mmol/L (135-145); Total Bilirubin 0.3 mg/dl (0.2-1.3); Total Protein 5.1 g/dl (6.3-8.2); eGFR > 60.00
[2023-06-02 06:38] LABS: Potassium 3.8 mmol/L (3.5-5.1)
[2023-06-02 07:55] VITALS: BP 119/60
--- NOTE | 2023-06-02 11:17 | CM ---
Addendum entered by Brenda Vargas RN 06/02/23 11:57:
Spoke with Jason lopez Agrees with [facility] plan to [facility].
Original Note:
Md indicate ready for test after abd MRI results return.
Call [facility] spoke with Edgard martinez obtained for [facility]. Approved 06/02/23 to 06/08/23 Ref number [id number] fax # [phone] Ale from [facility] given information and received pt for today.
Pt requested ambulance Obtained auth with [facility] Ref # [id number]. Medical nec form competed sent to floor.
[facility]
report [phone]
fax [phone]
PLAN: To [facility] via ambulance
--- NOTE | 2023-06-02 12:26 | W.PN.HOSP.TC ---
Today's Communication/Plan
-
Discharge
Assessment / Plan
Assessment / Plan
Gen-AAOx3, NAD
HEENT-NC, AT, anicteric, clear oral mm
Neck-supple
CV-reg, no M, +S1/S2
Lungs-clear B/L
Abd-soft, NT, ND
Ext-no edema
Musculoskeletal-no cyanosis, clubbing
Skin-warm and dry
Neuro-grossly non-focal
Psych-calm, cooperative
Urinary Tract Infection -currently on IV Rocephin, day 5 of 5. Urine culture shows 2 species klebsiella, sensitivity noted. Blood cultures negative so far.
Acute traumatic rhabdomyolysis -due to fall at home, limited mobility. CPK trended down. She is not orthostatic based on vitals.
Elevated transaminases -normal alkaline phosphatase, bilirubin. Ultrasound shows moderate intra and extrahepatic biliary dilation. Contracted gallbladder without stones. Mild diffuse liver disease, probably diffuse hepatic steatosis. Pancreas
was incompletely visualized due to adjacent bowel gas. MRCP shows slight distention of common hepatic duct, proximal CBD, possibly age related. No choledocholithiasis, no pancreatic lesions.
Outpatient GI follow up, discussed with patient.
Hypernatremia -due to dehydration. Improved.
Troponin elevation -resolved. Likely acute nonischemic troponin elevation due to acute illness.
Excoriation buttocks 2/2 prolonged sitting with urine saturation
-Consult wound care
DVT prophylaxis
-subcu Lovenox
DNR
Dispo -med stable for d/c to SNF today. Updated patient's nephew Jason on the phone. All questions answered.
32 minutes spent in discharge process.
Anticipated Discharge: Today
Subjective/Interval History
-
Date of Service: June 02, 2023
Patient seen/examined. No complaints.
Objective Data
-
Labs:
Laboratory Results
06/02/23
05:27
WBC 12.7 H
Hgb 11.4 L
Hct 33.3 L
Plt Count 215 D
Sodium 133 L
Potassium 3.8
Chloride 99
Carbon Dioxide 28
BUN 12
Creatinine 0.4 L
Glucose 111 H
Calcium 8.8
Total Bilirubin 0.3
AST 91 H
ALT 105 H
Alkaline Phosphatase 109
Vital Signs:
Vital Signs
Temp Pulse Resp BP Pulse Ox
98.1 F 87 16 119/60 94
06/02/23 07:55 06/02/23 07:55 06/02/23 07:55 06/02/23 07:55 06/02/23 07:55
I&O
06/01/23 06/02/23 06/03/23
06:59 06:59 06:59
Intake Total 1260 / 1260 60 / 60
Balance 1260 / 1260 60 / 60
Review of Systems
-
History Source: Patient
All other systems: Reviewed and negative
[2023-06-02] MEDS: ROCEPHIN 1000 MG IV (12:38)
[2023-06-02] MEDS: STERILE WATER FOR INJECTION 10 ML IV (12:40)
--- NOTE | 2023-06-02 12:40 | W.DS.TRANS ---
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
-
Discharge Instructions:
Discharge Diagnosis/Procedures Ambulatory dysfunction, rhabdomyolysis, UTI,
elevated transaminases, dehydration
Diet Regular
Activity As tolerated,With assistance
Driving Restrictions Not until seen by your Dr
Bathing Restrictions None
Instructions:
Stand-Alone Forms:
Changes to Home Medications: No
Discharge Medications:
DC Medications w/original date entered in sones
Calcium with Vitamin D 1 tab PO DAILY Supplement 05/29/23
M.V.I. Adult 1 tab PO DAILY Supplement 05/29/23
bisacodyl 10 mg rectal suppository 10 mg UT [id number] PRN constipation #0 ea 06/02/23
polyethylene glycol 3350 17 gram oral powder packet (HealthyLax) 17 g PO DAILYPRN PRN constipation #0 ea 06/02/23
sennosides 8.6 mg-docusate sodium 50 mg tablet (Stool Softener-Stimulant Laxative) 1 tab PO BIDPRN PRN constipation #0 tabs 06/02/23
Home Medication Changes
Pending Results: No
[2023-06-02 13:13] VITALS: BP 134/64
[2023-06-02 15:49] VITALS: BP 148/67
[2023-06-02] MEDS: LOVENOX 40 MG SC (17:11)
== END 2023-06-02 17:59 | DRG 565 ==
LOC: 3 WEST ACU 22:16
PROVIDERS: Clinical Nurse Specialist Family Health; Hospitalist; ADMITTING PHYSICIAN Internal Medicine; ATTENDING PHYSICIAN Hospitalist; EMERGENCY PHYSICIAN Student in an Organized Health Care Education/Training Program; FAMILY PHYSICIAN Internal Medicine
DX: T79.6XXA Traumatic ischemia of muscle, initial encounter (principal); E87.0 Hyperosmolality and hypernatremia; N39.0 Urinary tract infection, site not specified; I5A Non-ischemic myocardial injury (non-traumatic); R65.10 Systemic inflammatory response syndrome (SIRS) of non-infectious origin without acute organ dysfunction; W18.30XA Fall on same level, unspecified, initial encounter; E86.0 Dehydration; L89.152 Pressure ulcer of sacral region, stage 2; L89.622 Pressure ulcer of left heel, stage 2; R74.01 Elevation of levels of liver transaminase levels
CPT/HCPCS: 51701; 70450; 73521; 74181; 76700; 80048; 80053; 81003; 81015; 82550; 83605; 83880; 84484; 85025; 86140; 87040; 87077; 87086; 87186; 87811; 93005; 93306; 96361; 96374; 97163; 97167; 97530; 97535; 99285

== ENCOUNTER → 2023-06-03 10:42 | Outpatient (REF) | payer OTHER, SELFPAY ==
[2023-06-03 12:07] LABS: % Basophils 0.4 % (0-2); % Eosinophils 4.3 % (0-6); % Immature Granulocytes 2.7 % (0-0.5); % Lymphocytes 17.3 % (20.5-51.1); % Monocytes 9.1 % (1.7-9.3); % Neutrophils 66.2 % (42.2-75.2); Absolute Eosinophils 0.5 10^3/uL (0-0.7); Absolute Immature Granulocytes 0.3 10^3/uL (0-0.05); Absolute Lymphocytes 1.9 10^3/uL (1.2-3.4); Absolute Neutrophils 7.2 10^3/uL (1.4-6.5); Hematocrit 33.9 % (37.0-47.0); Hemoglobin 11.4 g/dL (12.0-16.0); Mean Corp Hgb Conc. 33.6 g/dL (33.0-37.0); Mean Corpuscular Volume 89.2 fL (81.0-99.0); Mean Platelet Volume 9.2 fL (7.4-10.4); Nucleated Red Blood Cells % 0 %; Platelet Count 285 10^3/uL (130-400); Red Cell Dist. Width 13.5 % (11.5-14.5); White Blood Cell Count 10.8 10^3/uL (4.8-10.8)
[2023-06-03 12:49] LABS: ALT (SGPT) 133 U/L (0-35); AST (SGOT) 99 U/L (14-36); Albumin 2.5 g/dl (3.5-5.0); Alkaline Phosphatase 112 U/L (38-126); Blood Urea Nitrogen 10 mg/dl (7-17); Calcium 8.7 mg/dl (8.4-10.2); Carbon Dioxide 30 mmol/L (22-30); Chloride 103 mmol/L (98-107); Glucose 103 mg/dl (70-99); Magnesium 1.9 mg/dl (1.6-2.3); Potassium 3.9 mmol/L (3.5-5.1); Sodium 133 mmol/L (135-145); Total Bilirubin 0.2 mg/dl (0.2-1.3); Total Protein 5.1 g/dl (6.3-8.2); eGFR > 60.00
== END ==
LOC: OLABN 10:42
PROVIDERS: ATTENDING PHYSICIAN Student in an Organized Health Care Education/Training Program
DX: E86.0 Dehydration (principal)
CPT/HCPCS: 80053; 83735; 85025

== ENCOUNTER → 2023-06-11 08:47 | Outpatient (REF) | payer OTHER, SELFPAY ==
[2023-06-11 10:06] LABS: % Basophils 0.3 % (0-2); % Eosinophils 0.9 % (0-6); % Immature Granulocytes 0.6 % (0-0.5); % Lymphocytes 11.6 % (20.5-51.1); % Monocytes 5.3 % (1.7-9.3); % Neutrophils 81.3 % (42.2-75.2); Absolute Eosinophils 0.1 10^3/uL (0-0.7); Absolute Immature Granulocytes 0.1 10^3/uL (0-0.05); Absolute Lymphocytes 1.5 10^3/uL (1.2-3.4); Absolute Monocytes 0.7 10^3/uL (0.1-0.6); Absolute Neutrophils 10.3 10^3/uL (1.4-6.5); Hematocrit 29.8 % (37.0-47.0); Hemoglobin 9.7 g/dL (12.0-16.0); Mean Corp Hgb Conc. 32.6 g/dL (33.0-37.0); Mean Corpuscular Hgb 29.3 pg (27.0-31.0); Mean Platelet Volume 9.4 fL (7.4-10.4); Nucleated Red Blood Cells % 0 %; Platelet Count 274 10^3/uL (130-400); Red Blood Cell Count 3.31 10^6/uL (4.20-5.40); Red Cell Dist. Width 13.7 % (11.5-14.5); White Blood Cell Count 12.7 10^3/uL (4.8-10.8)
[2023-06-11 10:22] LABS: ALT (SGPT) 133 U/L (0-35); AST (SGOT) 67 U/L (14-36); Albumin 2.4 g/dl (3.5-5.0); Alkaline Phosphatase 246 U/L (38-126); Blood Urea Nitrogen 14 mg/dl (7-17); Calcium 8.5 mg/dl (8.4-10.2); Carbon Dioxide 26 mmol/L (22-30); Chloride 104 mmol/L (98-107); Glucose 106 mg/dl (70-99); Potassium 4.4 mmol/L (3.5-5.1); Sodium 132 mmol/L (135-145); Total Bilirubin 0.5 mg/dl (0.2-1.3); Total Protein 5.2 g/dl (6.3-8.2); eGFR > 60.00
== END ==
LOC: OLABN 08:47
PROVIDERS: ATTENDING PHYSICIAN Student in an Organized Health Care Education/Training Program
DX: R50.9 Fever, unspecified (principal)
CPT/HCPCS: 36415; 80053; 85025

== ENCOUNTER → 2023-06-17 10:17 | Outpatient (REF) | payer OTHER, SELFPAY ==
[2023-06-17 11:27] LABS: % Basophils 0.5 % (0-2); % Eosinophils 6.6 % (0-6); % Immature Granulocytes 1.1 % (0-0.5); % Lymphocytes 18.2 % (20.5-51.1); % Neutrophils 66.6 % (42.2-75.2); Absolute Eosinophils 0.6 10^3/uL (0-0.7); Absolute Immature Granulocytes 0.1 10^3/uL (0-0.05); Absolute Lymphocytes 1.5 10^3/uL (1.2-3.4); Absolute Monocytes 0.6 10^3/uL (0.1-0.6); Absolute Neutrophils 5.5 10^3/uL (1.4-6.5); Hematocrit 32.3 % (37.0-47.0); Hemoglobin 10.3 g/dL (12.0-16.0); Mean Corp Hgb Conc. 31.9 g/dL (33.0-37.0); Mean Corpuscular Hgb 29.3 pg (27.0-31.0); Mean Corpuscular Volume 91.8 fL (81.0-99.0); Mean Platelet Volume 8.7 fL (7.4-10.4); Nucleated Red Blood Cells % 0 %; Platelet Count 320 10^3/uL (130-400); Red Blood Cell Count 3.52 10^6/uL (4.20-5.40); Red Cell Dist. Width 14.2 % (11.5-14.5); White Blood Cell Count 8.3 10^3/uL (4.8-10.8)
[2023-06-17 11:46] LABS: ALT (SGPT) 57 U/L (0-35); AST (SGOT) 38 U/L (14-36); Albumin 2.5 g/dl (3.5-5.0); Alkaline Phosphatase 183 U/L (38-126); Blood Urea Nitrogen 12 mg/dl (7-17); Calcium 8.5 mg/dl (8.4-10.2); Carbon Dioxide 28 mmol/L (22-30); Chloride 105 mmol/L (98-107); Glucose 94 mg/dl (70-99); Potassium 4.2 mmol/L (3.5-5.1); Sodium 134 mmol/L (135-145); Total Bilirubin 0.3 mg/dl (0.2-1.3); Total Protein 5.5 g/dl (6.3-8.2); eGFR > 60.00
== END ==
LOC: OLABN 10:17
PROVIDERS: ATTENDING PHYSICIAN Student in an Organized Health Care Education/Training Program
DX: M62.82 Rhabdomyolysis (principal)
CPT/HCPCS: 36415; 80053; 85025